=== PATIENT | female | born 1940 | race Caucasian/White ===

== ENCOUNTER → 2024-09-09 10:39 | Outpatient (REF) | payer MEDICARE, SELFPAY | LOC: RAD 10:39 | PROVIDERS: ATTENDING PHYSICIAN Internal Medicine Geriatric Medicine; FAMILY PHYSICIAN Internal Medicine; REFERRING PHYSICIAN Internal Medicine | DX: M12.812 Other specific arthropathies, not elsewhere classified, left shoulder (principal) | CPT/HCPCS: 73030 ==

== ENCOUNTER → 2024-10-24 06:42 | Outpatient (REF) | payer MEDICARE, OTHER, SELFPAY | LOC: PAVMRI 06:42 | PROVIDERS: ATTENDING PHYSICIAN Physician Assistant Medical; FAMILY PHYSICIAN Internal Medicine | DX: M19.012 Primary osteoarthritis, left shoulder (principal) | CPT/HCPCS: 73221 ==

== ENCOUNTER → 2025-01-23 11:43 | Outpatient (REF) | payer MEDICARE, SELFPAY | LOC: PAVMRI 11:43 | PROVIDERS: ATTENDING PHYSICIAN Specialist | DX: M54.16 Radiculopathy, lumbar region (principal) | CPT/HCPCS: 72148 ==

== ENCOUNTER → 2025-04-03 11:02 | Outpatient (REF) | payer MEDICARE, SELFPAY | LOC: RAD 11:02 | PROVIDERS: ATTENDING PHYSICIAN Physician Assistant | DX: N93.9 Abnormal uterine and vaginal bleeding, unspecified (principal) | CPT/HCPCS: 76830; 76856 ==

== ENCOUNTER → 2025-04-12 10:31 | Outpatient (REF) | payer MEDICARE, SELFPAY | LOC: MRI 10:31 | PROVIDERS: ATTENDING PHYSICIAN Physician Assistant; FAMILY PHYSICIAN Internal Medicine | DX: R19.09 Other intra-abdominal and pelvic swelling, mass and lump (principal) | CPT/HCPCS: 72197; A9575 ==

== ENCOUNTER 2025-05-28 10:31 | Emergency (ER) | payer MEDICARE, SELFPAY ==
[2025-05-28 10:35] VITALS: BP 147/83
[2025-05-28 12:07] VITALS: BP 147/74
--- NOTE | 2025-05-28 13:33 | ED.GENMED ---
History of Present Illness
General
Chief Complaint: DVT/Possible Blood Clot
Source: patient and care aide
Exam Limitations: none
Time Seen by Provider: 05/28/25 11:50
Nursing documentation reviewed up to this point in time: agreed with
History of Present Illness
History of Present Illness:
85 yo female w h/o HTN due to have hysterectomy tomorrow by Dr. Lira presents with her caregiver who noted redness and swelling of the right lower extremity this a.m. There is no associated pain, but there is a sense of discomfort. The patient
denies any fever or chills. Denies fever/chills. NO CP or SOB. No overuse or injury
Past History
Past History
ED Past Medical History: Asthma, HTN and Other (Chronic back pain)
Social History
Tobacco: Non-smoker
Alcohol: None
Drug: None
Review of Systems
Review of Systems
Allergies reviewed?: Yes
All Other Systems: ROS reviewed and negative except as documented in HPI and ROS
Constitutional: Denies fever or chills
Respiratory: Denies trouble breathing
Cardiac: Denies chest pain
Skin: Reports other (redness, warmth, swelling right ankle)
Phy Exam
Physical Exam
Physical Exam:
GENERAL: No acute distress. A&Ox3.
CONSTITUTIONAL: Afebrile.
EYES: clear, conjunctivae normal
ENMT: moist mucus membranes
RESPIRATORY: Regular respirations, nonlabored, lungs clear.
CARDIOVASCULAR: Regular rate and rhythm, no murmurs, no rubs.
GI: Soft, nontender, normal BS
MUSCULOSKELETAL: Moves with ease. Well perfused.
SKIN: Warm, dry, pink. There is a 13x16 cm area on the anterior surface of the right ankle and proximal dorsus that is mildly swollen, warm and erythematous, and there is a slight tenderness in the area, although the patient can still move her
ankle fully without difficulty. Distal n/v intact
PSYCH: Normal mood and affect. Well kept, interactive and appropriate
NEUROLOGIC: Awake, alert and oriented. No focal neurological deficits
Course
Orders/Labs/Results
Orders:
Orders
05/28/25 10:33
Legs, Right US [US Periph Venous LOWER Ext RT] Urgent
Comment:
Reason For Exam: redness swelling
05/28/25 13:37
Complete Blood Count/With Diff Urgent
Comprehensive Metabolic Panel Urgent
05/28/25 14:46
Doxycycline [Vibramycin] 100 mg PO NOW STA
Abnormal Lab Results
05/28/25
13:37
RBC 4.00 L 10^6/uL
(4.20-5.40)
Hgb 11.4 L g/dL
(12.0-16.0)
Hct 35.0 L %
(37.0-47.0)
MCHC 32.6 L g/dL
(33.0-37.0)
Chloride 109 H mmol/L
(98-107)
BUN 20 H mg/dl
(7-17)
Total Protein 5.5 L g/dl
(6.3-8.2)
05/28/25 13:37
05/28/25 13:37
Vital Signs
Initial and Last Documented VS:
Initial Vital Signs
Temp Pulse Resp BP Pulse Ox
98.2 F 86 16 147/83 95
05/28/25 10:35 05/28/25 10:35 05/28/25 10:35 05/28/25 10:35 05/28/25 10:35
Last Documented Vital Signs
Temp Pulse Resp BP Pulse Ox
98.2 F 74 25 118/85 95
05/28/25 10:35 05/28/25 14:51 05/28/25 14:51 05/28/25 14:51 05/28/25 13:35
MDM/Problems Addressed
Differential Diagnosis Includes:
DVT, cellulitis, insect bite
MDM/Problems Addressed:
85 yo female w h/o HTN due to have hysterectomy tomorrow by Dr. Lira presents with her caregiver who noted redness and swelling of the right lower extremity this a.m. There is no associated pain, but there is a sense of discomfort. The patient
denies any fever or chills. Denies fever/chills. NO CP or SOB. No overuse or injury
CBC, CMP with no clinically significant abnormality
Ultrasound RLE negative for DVT
Dr. Youngblood informed of today's visit and he will reassess the wound tomorrow prior to her surgery. Patient was notified that he said her surgery will depend on how the area looks tomorrow.
Area marked for observation
*Pulse Oximetry
SaO2: 95
Oxygen Mode of Delivery: Room air
Patient hypoxic: not evaluated
*Critical Care Note
Total Time (30-74mins, 75-104mins- exclusive of procedures): Not Applicable
ED Attending Note
-
Portions of this chart may have been created with voice recognition software.� Occasional wrong word or��sound alike� substitutions may have occurred due to the inherent limitations of voice recognition software.
Discharge Plan
Departure
Patient Disposition: Home (Routine Discharge)
Date of Disposition: 05/28/25
Time of Disposition: 14:48
Patient with high blood pressure during this ER visit?: No
Condition: Good
Discharge Problem:
Cellulitis of right lower extremity
Instructions: Cellulitis (Skin Infection), Adult (DC)
Prescriptions:
New
doxycycline hyclate 100 mg tablet
100 mg PO BID Qty: 19 0RF
No Action
atorvastatin 80 mg Tablet
80 mg PO HS
pantoprazole 40 mg Tablet,Delayed Release (Dr/Ec)
40 mg PO DAILY
lisinopril 10 mg Tablet
10 mg PO DAILY
hydrochlorothiazide 25 mg Tablet
25 mg PO DAILY
Patient Comments:
stopped by Dr marcano
albuterol sulfate 90 mcg/actuation Hfa Aerosol Inhaler
2 puff INHALATION R QID PRN (Reason: shortness of breath)
ezetimibe 10 mg Tablet
10 mg PO DAILY
fluticasone furoate-vilanterol [Breo Ellipta] 100-25 mcg/dose Blister With Device
1 inh INHALATION R DAILY
methenamine hippurate 1 gram Tablet
1 g PO BID
multivitamin Tablet
1 tab PO DAILY
calcium 600 mg Capsule
600 mg PO DAILY
acetaminophen 500 mg Tablet
500 mg PO Q6H PRN (Reason: pain)
estradiol 0.01 % (0.1 mg/gram) Cream
1 g VAGINAL MOTH
fluticasone propionate 50 mcg/actuation [place],Suspension
1 spray INTRANASAL DAILY
gabapentin 100 mg Tablet
100 mg PO DAILY
Patient Comments:
stopped by Dr Marcano
cholecalciferol (vitamin D3) [Vitamin D3] 50 mcg (2,000 unit) Tablet
50 mcg PO DAILY
Referrals:
Luda Marcano DO [Family Provider, Internal Medicine] - Follow up in 2-3 days
Activity Restrictions/Additional Instructions:
As we discussed, I sent a prescription to your pharmacy for doxycycline to take twice a day for the next 9 days.
I spoke to Dr. Lira and he said he will recheck the area tomorrow, he said he may not do the operation if the area looks concerning.
Interventions
Interventions:
*Risk Screen - Suicide Last Done: 05/28/25 10:35
*General Assessment Last Done: 05/28/25 12:03
*Neglect/Abuse Screening Last Done: 05/28/25 10:35
*ED- Fall Risk Assessment Last Done: 05/28/25 12:03
*ED COVID-19 Vaccine History Last Done: 05/28/25 12:03
*Nursing Disposition Last Done: 05/28/25 14:59
ED- Cardiac Assessment Last Done: 05/28/25 12:03
ED- Pulmonary Assessment Last Done: 05/28/25 12:03
ED-Peripheral Vascular Assessment Last Done: 05/28/25 12:06
ED-Skin Assessment Last Done: 05/28/25 12:03
Discharge Date and Time
Discharge Date/Time: 05/28/25 14:58
Print Language: NIGERIEN
[2025-05-28 13:50] LABS: Hematocrit 35.0 % (37.0-47.0); Hemoglobin 11.4 g/dL (12.0-16.0); Mean Corp Hgb Conc. 32.6 g/dL (33.0-37.0); Mean Corpuscular Volume 87.5 fL (81.0-99.0); Nucleated Red Blood Cells % 0 %; Platelet Count 165 10^3/uL (130-400); Red Cell Dist. Width 14.4 % (11.5-14.5)
[2025-05-28 14:08] LABS: ALT (SGPT) 15 U/L (0-35); AST (SGOT) 20 U/L (14-36); Albumin 3.7 g/dl (3.5-5.0); Alkaline Phosphatase 91 U/L (38-126); Blood Urea Nitrogen 20 mg/dl (7-17); Calcium 8.9 mg/dl (8.4-10.2); Carbon Dioxide 27 mmol/L (22-30); Chloride 109 mmol/L (98-107); Glucose 86 mg/dl (70-99); Potassium 4.1 mmol/L (3.5-5.1); Sodium 139 mmol/L (135-145); Total Protein 5.5 g/dl (6.3-8.2); eGFR > 60.00
[2025-05-28 14:51] VITALS: BP 118/85
[2025-05-28] MEDS: VIBRAMYCIN 100 MG PO (14:51)
== END 2025-05-28 14:58 | disposition home or self-care (01) ==
LOC: EMR 10:31
PROVIDERS: Registered Nurse; EMERGENCY PHYSICIAN Emergency Medicine; FAMILY PHYSICIAN Internal Medicine
DX: L03.115 Cellulitis of right lower limb (principal); R22.41 Localized swelling, mass and lump, right lower limb; J45.909 Unspecified asthma, uncomplicated; I10 Essential (primary) hypertension
CPT/HCPCS: 99284; 80053; 85025; 93971

== ENCOUNTER 2025-05-29 06:08 | Day surgery (SDC) | payer MEDICARE, SELFPAY ==
[2025-05-15 11:33] LABS: Hematocrit 34.9 % (37.0-47.0); Hemoglobin 11.4 g/dL (12.0-16.0); Mean Corp Hgb Conc. 32.7 g/dL (33.0-37.0); Mean Corpuscular Volume 88.8 fL (81.0-99.0); Platelet Count 167 10^3/uL (130-400); Red Cell Dist. Width 14.1 % (11.5-14.5)
[2025-05-15 12:15] LABS: Blood Urea Nitrogen 19 mg/dl (7-17); Calcium 9.3 mg/dl (8.4-10.2); Carbon Dioxide 27 mmol/L (22-30); Chloride 107 mmol/L (98-107); Glucose 78 mg/dl (70-99); Potassium 3.8 mmol/L (3.5-5.1); Sodium 139 mmol/L (135-145); eGFR > 60.00
[2025-05-15 14:23] VITALS: BMI 23.2
[2025-05-29 07:10] VITALS: BMI 23.4
[2025-05-29 07:17] VITALS: BMI 23.4
[2025-05-29 07:44] VITALS: BP 109/69
[2025-05-29 08:13] LABS: Hematocrit 35.7 % (37.0-47.0); Hemoglobin 11.5 g/dL (12.0-16.0); Mean Corp Hgb Conc. 32.2 g/dL (33.0-37.0); Mean Corpuscular Volume 88.4 fL (81.0-99.0); Nucleated Red Blood Cells % 0 %; Platelet Count 165 10^3/uL (130-400); Red Cell Dist. Width 14.4 % (11.5-14.5)
--- NOTE | 2025-05-29 08:34 | SUR.OPER ---
Patients surgery cancelled due to Cellulitis. Incident report filed. Will d/c patient
--- NOTE | 2025-05-29 08:36 | PTCARENOTE ---
CBC with diff and ABO2 drawn prior to discharge.
== END 2025-05-29 08:30 | disposition home or self-care (01) ==
LOC: SDS 06:08
PROVIDERS: ATTENDING PHYSICIAN Obstetrics & Gynecology; FAMILY PHYSICIAN Internal Medicine
DX: N81.4 Uterovaginal prolapse, unspecified (principal); Z53.8 Procedure and treatment not carried out for other reasons; L03.90 Cellulitis, unspecified
CPT/HCPCS: 57282; 36415; 80048; 85025; 85027; 86850; 86900; 86901; J1580

== ENCOUNTER → 2025-06-12 08:56 | Outpatient (REF) | payer MEDICARE, SELFPAY | LOC: HWRAD 08:56 | PROVIDERS: ATTENDING PHYSICIAN Internal Medicine | DX: M81.0 Age-related osteoporosis without current pathological fracture (principal) | CPT/HCPCS: 77080 ==

== ENCOUNTER 2025-08-01 06:22 | Day surgery (SDC) | payer MEDICARE, SELFPAY ==
[2025-08-01] VITALS (11 sets, daily range): BP systolic 134–153; BP diastolic 74–83; BMI 23.0
[2025-08-01] MEDS: HEPARIN 5000 UNITS SC (11:45)
[2025-08-01] MEDS: NORMOSOL-R/PLASMALYTE-A 1000 IV (11:48)
[2025-08-01] MEDS: SUBLIMAZE 50 MCG IV (13:49)
[2025-08-01] MEDS: ZOFRAN 4 MG IV (14:05)
[2025-08-01] MEDS: SUBLIMAZE 25 MCG IV (14:29)
[2025-08-01] MEDS: TYLENOL 650 MG PO (15:10)
== END 2025-08-01 17:20 | disposition home or self-care (01) ==
LOC: SDS 06:22
PROVIDERS: ATTENDING PHYSICIAN Obstetrics & Gynecology
DX: N81.4 Uterovaginal prolapse, unspecified (principal); N95.2 Postmenopausal atrophic vaginitis
CPT/HCPCS: 57282; 57260; J1580